=== PATIENT | male | born 1990 | race Caucasian/White ===

== ENCOUNTER 2017-04-30 20:08 | Emergency (ER) | payer OTHER ==
--- NOTE | 2017-04-30 20:16 | EDPHY ---
H & P Time Seen by Provider: 04/30/17 20:13 HPI/ROS: HPI: This is a 26-year-old male presents with Chief Complaint: Left thumb laceration Location: Left thumb Quality: Laceration Duration: Prior to arrival Signs and Symptoms: + bleeding, no radiation, no numbness, no weakness, no tingling, no incontinence, no decreased range of motion, No swelling, + pain Timing: acute Severity: Moderate Context: Patient is right-hand dominant was cutting cauliflower at home when the knife accidentally slipped and cut medial/volar aspect inferior to the DIP joint. Patient noted some mild discomfort but with considerable bleeding. He applied direct pressure as well as placed an ice cube to the side of laceration. Tetanus booster last year. Drove self to the emergency room. Denies paresthesias/skin color changes/decreased range of motion. Modifying Factors: See above Comment: ROS: see HPI Constitutional: No fever, no chills, no weight loss Eyes: No blurred vision Respiratory: No shortness of breath, no cough Cardiovascular: No chest pain Gastrointestinal: No nausea, no vomiting no diarrhea Genitourinary: No dysuria Extremities: No myalgias Neurologic: No weakness, no numbness Skin: No rashes Hematologic: No bruising, no bleeding MEDICAL/SURGICAL/SOCIAL HISTORY: Medical history: Generally healthy. Does not take any regular medications. Surgical history: Denies Social history: Employed. CONSTITUTIONAL: Well-appearing adult white male, awake and alert, no obvious distress HEENT: Atraumatic and normocephalic, PERRL, EOMI. Tympanic membranes clear. Oropharynx clear, no exudate and moist pink mucosa. Airway patent. No lymphadenopathy. No meningismus. Cardiovascular: Normal S1/S2, regular rate, regular rhythm, without murmur rub or gallop. PULMONARY/CHEST: Symmetrical and nontender. Clear to auscultation bilaterally. Good air movement. No accessory muscle usage. ABDOMEN: Soft, nondistended, nontender, no rebound, no guarding, no peritoneal signs, no masses or organomegaly. No CVAT. 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 DIP/ MCP joint flexion, extension, light touch sensation intact. no clubbing, no cyanosis or edema. NEUROLOGICAL: no focal neuro deficits. GCS 15. SKIN: Warm and dry, no erythema. no rash. Good capillary refill. Source: Patient Exam Limitations: No limitations Constitutional: Initial Vital Signs Temperature (C) 36.9 C 04/30/17 20:16 Heart Rate 102 H 04/30/17 20:16 Respiratory Rate 18 04/30/17 20:16 Blood Pressure 160/92 H 04/30/17 20:16 O2 Sat (%) 97 04/30/17 20:16 Allergies/Adverse Reactions: azithromycin Allergy (Verified 04/30/17 20:15) doxycycline Allergy (Verified 04/30/17 20:15) Sulfa (Sulfonamide Antibiotics) Allergy (Verified 04/30/17 20:15) Home Medications: Medication Instructions Recorded NK [No Known Home Meds] 04/30/17 Medical Decision Making Procedures: Procedure: Laceration repair. Verbal consent was obtained from the patient. The left thumb 3 cm irregular, deep, horizontal was anesthetized in the usual fashion using 4 mL of 0.5% bupivacaine digital block. The wound was irrigated, draped and explored to its base with a gloved finger. There were no deep structures involved. No tendon injury was identified. The wound was repaired with #6, 5 0 Prolene in simple interrupted pattern. Good hemostasis was achieved and patient tolerated procedure well. Xeroform, clean sterile dressing and finger splint applied. The procedure was performed by myself. Procedure: Splint placement. A left thumb splint was applied by the Emergency Room cmm technician. After application of the splint I returned and re-examined the patient. The splint was adequately immobilizing the joint and distal to the splint the patient's circulation and sensation was intact. ED Course/Re-evaluation: Wound care and laceration repair Tetanus up-to-date No signs of neurovascular compromise/tenting of skin/compartment syndrome/ extremities and joints examined above and below area of concern and are neurovascularly intact/tendon. Xeroform, gauze, finger splint placed Wound care instructions provided. This patient was seen under the supervision of my secondary supervising physician. I evaluated care for this patient independently. Differential Diagnosis: Differential diagnosis includes but is not limited to laceration, contusion, nerve injury, tendon injury. Departure - Departure Disposition: Home, Routine, Self-Care Clinical Impression: Laceration of left thumb Qualifiers: Encounter type: initial encounter Damage to nail status: without damage Foreign body presence: without foreign body Qualified Code(s): S61.012A - Laceration without foreign body of left thumb without damage to nail, initial encounter Condition: Good Instructions: Care For Your Stitches (ED), Finger Laceration (ED) Additional Instructions: Keep the dressing/splint dry and in place for 3 days. After 3 days, you may remove the dressing; wash the site daily with mild soap and water; then pat dry. Apply ice for 30 minutes at a time; 2-3 times per day for the next 1-2 days. Please return to the emergency room in 7-10 days to have your sutures removed. Referrals: NAT,NO SPECIFIC [Other] - As per Instructions
[2017-04-30 20:18] VITALS: RESP 18
[2017-04-30 21:26] VITALS: BP 125/88; PULSE 85; TEMP 98.2; O2SAT 95
== END 2017-04-30 21:21 | disposition home or self-care (01) ==
PROC: 0HQGXZZ Repair Left Hand Skin, External Approach (ICD-10-PCS; principal; 2017-04-30)
DX: S61.012A Laceration without foreign body of left thumb without damage to nail, initial encounter (principal); W26.0XXA Contact with knife, initial encounter; Y92.009 Unspecified place in unspecified non-institutional (private) residence as the place of occurrence of the external cause; Y93.G1 Activity, food preparation and clean up
CPT/HCPCS: L3925